=== PATIENT | male | born 1950 | race Caucasian/White ===

== ENCOUNTER → 2023-11-28 08:32 | Outpatient (REF) | payer MEDICARE, OTHER, SELFPAY ==
[2023-11-28 10:39] LABS: Hematocrit 40.6 % (39.0-52.0); Hemoglobin 14.3 g/dL (13.0-18.0); Mean Corp Hgb Conc. 35.2 g/dL (33.0-37.0); Mean Corpuscular Hgb 32.8 pg (27.0-31.0); Mean Corpuscular Volume 93.1 fL (80.0-94.0); Mean Platelet Volume 9.4 fL (7.4-10.4); Platelet Count 238 10^3/uL (130-400); Red Blood Cell Count 4.36 10^6/uL (4.70-6.10); Red Cell Dist. Width 12.5 % (11.5-14.5); White Blood Cell Count 4.8 10^3/uL (4.8-10.8)
[2023-11-28 11:03] LABS: Blood Urea Nitrogen 14 mg/dl (9-20); Calcium 8.7 mg/dl (8.4-10.2); Carbon Dioxide 30 mmol/L (22-30); Chloride 103 mmol/L (98-107); Glucose 101 mg/dl (70-99); Potassium 3.7 mmol/L (3.5-5.1); Sodium 142 mmol/L (135-145); eGFR > 60.00
== END ==
LOC: SDSPAT 08:32
PROVIDERS: ATTENDING PHYSICIAN Surgery; FAMILY PHYSICIAN Family Medicine
DX: Z01.818 Encounter for other preprocedural examination (principal)
CPT/HCPCS: 36415; 80048; 85027; 93005

== ENCOUNTER 2023-12-14 06:19 | Day surgery (SDC) | payer MEDICARE, OTHER, SELFPAY ==
[2023-11-28 10:02] VITALS: BMI 26.6
[2023-12-14] VITALS (8 sets, daily range): BP systolic 109–157; BP diastolic 72–84; BMI 26.6
[2023-12-14] MEDS: TYLENOL 1000 MG PO ×4 (09:49)
[2023-12-14] MEDS: NORMOSOL-R 1000 IV ×4 (10:02)
== END 2023-12-14 13:03 | disposition home or self-care (01) ==
LOC: SDS 06:19
PROVIDERS: ATTENDING PHYSICIAN Surgery; FAMILY PHYSICIAN Family Medicine
DX: K40.90 Unilateral inguinal hernia, without obstruction or gangrene, not specified as recurrent (principal)
CPT/HCPCS: 49650; C1781